=== PATIENT | female | born 1965 | race Caucasian/White ===

== ENCOUNTER 2023-09-17 17:09 | Emergency (ER) | payer OTHER, SELFPAY ==
[2023-09-17 17:13] VITALS: BP 196/124
[2023-09-17 17:40] LABS: % Basophils 0.7 % (0-2); % Eosinophils 1.5 % (0-6); % Immature Granulocytes 0.3 % (0-0.5); % Monocytes 10.1 % (1.7-9.3); % Neutrophils 55.4 % (42.2-75.2); Absolute Basophils 0.1 10^3/uL (0-0.2); Absolute Eosinophils 0.1 10^3/uL (0-0.7); Absolute Lymphocytes 2.2 10^3/uL (1.2-3.4); Absolute Monocytes 0.7 10^3/uL (0.1-0.6); Absolute Neutrophils 3.8 10^3/uL (1.4-6.5); Hematocrit 41.2 % (37.0-47.0); Hemoglobin 14.2 g/dL (12.0-16.0); Mean Corp Hgb Conc. 34.5 g/dL (33.0-37.0); Mean Corpuscular Hgb 31.8 pg (27.0-31.0); Mean Corpuscular Volume 92.2 fL (81.0-99.0); Mean Platelet Volume 10.5 fL (7.4-10.4); Nucleated Red Blood Cells % 0 %; Platelet Count 245 10^3/uL (130-400); Red Blood Cell Count 4.47 10^6/uL (4.20-5.40); Red Cell Dist. Width 12.4 % (11.5-14.5); White Blood Cell Count 6.8 10^3/uL (4.8-10.8)
[2023-09-17 17:55] LABS: ALT (SGPT) 21 U/L (0-35); AST (SGOT) 30 U/L (14-36); Albumin 4.8 g/dl (3.5-5.0); Alkaline Phosphatase 76 U/L (38-126); Blood Urea Nitrogen 15 mg/dl (7-17); Calcium 9.3 mg/dl (8.4-10.2); Carbon Dioxide 27 mmol/L (22-30); Chloride 106 mmol/L (98-107); Glucose 108 mg/dl (70-99); Potassium 4.1 mmol/L (3.5-5.1); Sodium 138 mmol/L (135-145); Total Bilirubin 0.5 mg/dl (0.2-1.3); Total Protein 7.7 g/dl (6.3-8.2); eGFR > 60.00
[2023-09-17] MEDS: COZAAR 50 MG PO (19:10)
[2023-09-17 19:11] VITALS: BMI 28.9
[2023-09-17 19:30] VITALS: BP 161/84
[2023-09-17 20:00] VITALS: BP 157/89
[2023-09-17 20:30] VITALS: BP 166/87
--- NOTE | 2023-09-17 20:58 | ED.GENMED ---
History of Present Illness
General
Chief Complaint: Blood Pressure Problem
Source: patient
Exam Limitations: none
Time Seen by Provider: 09/17/23 18:43
Nursing documentation reviewed up to this point in time: agreed with
Travel History
Have you had any contact with someone who has COVID-19?: No
Do you have any symptoms of coronavirus? Fever > 100 degrees, chills, cough, shortness of breath, sore throat, loss of taste or smell, muscle aches, or headache?: No
History of Present Illness
History of Present Illness:
Patient states she went to see PCP today for report of left throat and ear pain. States her BP was elevated when she got to office. Sent to ED for eval. Denies headache dizziness blurred vision, No cp/pressure. Brought to ED by spouse for eval.
BP in ED 196/95. Takes Losartan 50mg qPM. Has not taken dose yet.
Past History
Past History
ED Past Medical History: CVA (TIA 03/2023) and HTN
Social History
Tobacco: Non-smoker
Alcohol: None
Drug: None
Review of Systems
Review of Systems
Allergies reviewed?: Yes
All Other Systems: ROS reviewed and negative except as documented in HPI and ROS
Constitutional: Reports no symptoms
EENT: Reports other (left sided sorethroat, ear pain)
Respiratory: Reports no symptoms
Cardiac: Reports no symptoms
ABD/GI: Reports no symptoms
: Reports no symptoms
Musculoskeletal: Reports no symptoms
Skin: Reports no symptoms
Neurological: Reports no symptoms
Psychiatric: Reports no symptoms
Phy Exam
General Physical Exam
General Presentation: well appearing and no apparent distress
General age: appears stated age
General Skin: warm and dry
General Habitus: normal
General Mental: alert
ENT Exam
ENT Exam: EOMI, TM's normal, neck supple, swallowing well and other (Left tonsil with small canker sore. No swelling. Uvula midline. No difficulty breathing or swallowing.)
Cardiovascular Exam
Cardiovascular Exam: regular rate/rhythm and no edema
Pulmonary Exam
Pulmonary Exam: lungs clear and no respiratory distress
Musculoskeletal Exam
Musculoskeletal Exam: full ROM and neuro vasc intact
Skin Exam
Skin Exam: normal color, warm/dry and no rash
Psychiatric Exam
Psychiatric Exam: normal mood/affect
Course
Orders/Labs/Results
Orders:
Orders
09/17/23 17:22
Electrocardiogram (*1) Urgent
Reason for Study: Abdominal Pain
09/17/23 17:23
EKG- Treatment ONCE
09/17/23 17:29
Complete Blood Count/With Diff Urgent
Comprehensive Metabolic Panel Urgent
09/17/23 18:54
Cardiac Monitoring- Treatment ONCE
Losartan [Cozaar] 50 mg PO NOW STA
Abnormal Lab Results
09/17/23
17:29
MCH 31.8 H pg
(27.0-31.0)
MPV 10.5 H fL
(7.4-10.4)
Absolute Monos (auto) 0.7 H 10^3/uL
(0.1-0.6)
Monocytes % 10.1 H %
(1.7-9.3)
Glucose 108 H mg/dl
(70-99)
09/17/23 17:29
09/17/23 17:29
Vital Signs
Initial and Last Documented VS:
Initial Vital Signs
Pulse Resp BP Pulse Ox
83 19 196/124 100
09/17/23 17:13 09/17/23 17:13 09/17/23 17:13 09/17/23 17:13
Last Documented Vital Signs
Pulse Resp BP Pulse Ox
69 17 166/87 97
09/17/23 20:30 09/17/23 20:30 09/17/23 20:30 09/17/23 20:30
*Pulse Oximetry
Patient hypoxic: no
*EKG
Interpretation: normal
Rate: normal
Rhythm: sinus
*Critical Care Note
Total Time (30-74mins, 75-104mins- exclusive of procedures): Not Applicable
Update Note
Update Note:
Patient to ED for eval of elevated BP readings. Her PM dose of losartan was given in dept and BP responding well. WIll continue dose as prescribe, keep BP log and follow upw ith PCP. She requested number for cardiology followup and referral
given. Left tonsil with small canker sore. Will treat with Magic mouthwash. No evidence of peritonsilar or tonsillar abscess. Uvula is midline, swallowing well.
ED Attending Note
-
Portions of this chart may have been created with voice recognition software.� Occasional wrong word or��sound alike� substitutions may have occurred due to the inherent limitations of voice recognition software.
Discharge Plan
Departure
Patient Disposition: Home (Routine Discharge)
Date of Disposition: 09/17/23
Time of Disposition: 20:16
Patient with high blood pressure during this ER visit?: No
Condition: Good
Covid-19: Not Applicable
Discharge Problem:
Elevated blood pressure reading
Instructions: High Blood Pressure (DC)
Referrals:
Crispin Roberts MD [Active] - Next open appointment
Activity Restrictions/Additional Instructions:
Continue your medications as prescribed. Continue to log your random blood pressure readings
Interventions
Interventions:
*Risk Screen - Suicide Last Done: 09/17/23 17:13
*General Assessment Last Done: 09/17/23 17:13
*Neglect/Abuse Screening Last Done: 09/17/23 17:13
ED- Fall Risk Assessment Last Done: 09/17/23 19:11
*ED COVID-19 Vaccine History Last Done: 09/17/23 18:24
*Nursing Disposition Last Done: 09/17/23 20:50
ED- Cardiac Assessment Last Done: 09/17/23 19:11
ED- Neurological Assessment Last Done: 09/17/23 19:11
ED- Pulmonary Assessment Last Done: 09/17/23 19:11
Discharge Date and Time
Discharge Date/Time: 09/17/23 20:50
Print Language: MALTESE
== END 2023-09-17 20:50 | disposition home or self-care (01) ==
LOC: EMR 17:09
PROVIDERS: EMERGENCY PHYSICIAN Emergency Medicine; FAMILY PHYSICIAN Family Medicine
DX: I10 Essential (primary) hypertension (principal); K12.0 Recurrent oral aphthae; Z86.73 Personal history of transient ischemic attack (TIA), and cerebral infarction without residual deficits
CPT/HCPCS: 99284; 80053; 85025; 93005